=== PATIENT | male | born 1995 | race Caucasian/White ===

== ENCOUNTER 2018-07-06 15:12 | Inpatient (IN) ==
--- NOTE | 2018-07-06 15:40 | Emergency Department Note ---
History of Present Illness General Chief complaint: Infection Stated complaint: INFECTION ON ARM Time Seen by Provider: 07/06/18 15:23 History of Present Illness Maximum Pain Intensity: 5 This is a 23-year-old male that presents to the emergency department via private vehicle with complaints of "infection on arm". The patient notes that this past he noticed some redness on the right elbow. He thought there was a small blackhead there and he popped this and a small amount of blood and pus came out. He then notes that Friday the right elbow began to swell and now he notes redness that is spreading. He states that he was put on doxycycline by the [facility] employee health services but notes that he was there for recheck today and despite taking all the required and recommended medications he has now a worsening amount of redness on the right elbow. He is right-hand dominant. No direct trauma or injury. He denies any working at that involves him leaning on the elbows. He rates the pain is a 5/10. He does note of the weekend that he felt chills, fever, headache and body aches. He has never had this happen before. Home Medications Home Medications Medication Instructions Recorded Confirmed Type doxycycline hyclate 0 mg PO BID 07/06/18 07/06/18 History Allergies Allergy/AdvReac Type Severity Reaction Status Date / Time No Known Allergies Allergy Verified 07/06/18 18:58 Past Med/Surg History Medical History No pertinent past medical history Surgical History Hx of inguinal hernia repair Social History Feels Safe at Home: Yes Smoking Status: Never smoker Review of Systems A total of 10 systems reviewed and were otherwise negative Physical Exam Vital Signs Vital Signs - 24 hr 07/06/18 15:19 07/06/18 17:13 Temperature 36.9 C Temperature Source Oral Sepsis Recent Fever Within 48 Hours No Sepsis New/Unexplained Change in Mental Status No Sepsis Action Taken by Nursing No Action Required Pulse Rate 78 Pulse Rate [Right Finger] 86 Pulse Rhythm [Right Finger] Regular Pulse Strength [Right Finger] Normal Respiratory Rate 18 20 Respiratory Effort / Characteristics Non-Labored Non-Labored Respiratory Depth Normal Normal Respiratory Pattern Regular Blood Pressure 144/98 H Blood Pressure [Left Arm] 121/75 Blood Pressure Mean 113 Blood Pressure Mean [Left Arm] 90 Blood Pressure Position [Left Arm] Sitting Pulse Oximetry 99 98 Oxygen Delivery Method Room Air VITAL SIGNS - Vital signs and nursing notes were reviewed. Stable and afebrile. GENERAL -23-year-old male appearing his stated age who is in no acute distress. Communicates well with provider and answers questions appropriately. SKIN -there is a large amount of erythema overlying the patient's right posterior elbow. HEAD - NC/AT. EYES - PERRL with EOMI bilaterally. Sclera anicteric. Palpebral conjunctiva pink and moist with no injection noted. EARS - No deformities of external structures noted on gross examination bilaterally. NOSE - Midline and without cyanosis. No epistaxis or purulent drainage noted. MOUTH/OROPHARYNX - Without perioral cyanosis. NECK - Neck with FROM. Supple to palpation. No lymphadenopathy noted. No nuchal rigidity. LUNGS - Chest wall symmetric without accessory muscle use, intercostals retractions, or central cyanosis. Normal vesicular breath sounds CTA B/L. No wheezes, rales, or rhonchi appreciated. CARDIAC - RRR with S1/S2. No murmur, rubs, or gallops appreciated. EXTREMITIES - No clubbing or peripheral cyanosis. No pretibial edema present. Full range of motion both passive and active of the patient's right elbow and upper extremity. There is tenderness overlying the patient's right bursa it is slightly edematous and tender to palpation but not fluctuant. There is no evidence of drainable abscess. No physical exam evidence of septic joint. 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 +5/5 strength noted in UE/LE bilaterally. NEUROLOGIC - Cranial nerves II through XII grossly intact. Sensory intact to light touch throughout. PSYCH - A&Ox3 and cooperates fully with examiner. Pt is very pleasant and interacts well with examiner. Course Administered Medications Ioversol (Optiray 320 100ml) 93 ml IV ONCE PRN PRN Reason: Interaction Checking Stop: 07/10/18 17:18 Last Admin: 07/06/18 17:20 Dose: 93 ml Documented by: [id number] Discontinued Medications Sodium Chloride (Nss 1000ml) 1,000 mls @ 999 mls/hr IV .[id number] [id number] Stop: 07/06/18 16:45 Last Infusion: 07/06/18 17:06 Dose: 0 mls/hr Documented by: [id number] Admin: 07/06/18 16:01 Dose: 999 mls/hr Documented by: [id number] Ceftriaxone Sodium (Rocephin) 1,000 mg in 50 mls @ 100 mls/hr IV NOW STA Stop: 07/06/18 18:42 Last Infusion: 07/06/18 19:32 Dose: 0 mls/hr Documented by: [id number] Admin: 07/06/18 18:24 Dose: 100 mls/hr Documented by: [id number] Medical Decision Making Laboratory Data Result diagrams: 07/06/18 15:53 07/06/18 15:53 Lab Results 07/06/18 07/06/18 Range/Units 15:53 15:53 WBC 8.72 (4.8-10.8) K/uL RBC 5.08 (4.7-6.1) M/uL Hgb 16.0 (14.0-18.0) g/dL Hct 45.8 (42-52) % MCV 90.2 (80-100) fL MCH 31.5 (25-34) pg MCHC 34.9 (32-36) g/dL RDW Std Deviation 41.9 (36.4-46.3) fL RDW Coeff of Jhonny 12.7 (11.5-14.5) % Plt Count 214 (130-400) K/uL MPV 9.9 (7.4-10.4) fL Immature Gran % (Auto) 0.2 % Neut % (Auto) 70.0 % Lymph % (Auto) 19.0 % [place] % (Auto) 9.1 % Eos % (Auto) 1.6 % Baso % (Auto) 0.1 % Immature Gran # (Auto) 0.02 (0.00-0.02) K/uL Neut # (Auto) 6.10 (1.4-6.5) K/uL Lymph # (Auto) 1.66 (1.2-3.4) K/uL [place] # (Auto) 0.79 H (0.11-0.59) K/uL Eos # (Auto) 0.14 (0-0.5) K/uL Baso # (Auto) 0.01 (0-0.2) K/uL Sodium 138 (136-145) mmol/L Potassium 3.5 (3.5-5.1) mmol/L Chloride 101 (98-107) mmol/L Carbon Dioxide 32 (21-32) mmol/L Anion Gap 5.0 (3-11) BUN 13 (7-18) mg/dl Creatinine 0.96 (0.6-1.4) mg/dl Est Cr Clr Drug Dosing 115.5 ml/min Est GFR ( Amer) 126.8 Est GFR (Non-Af Amer) 109.4 BUN/Creatinine Ratio 13.5 (10-20) Glucose 77 (70-99) mg/dl Calcium 9.2 (8.5-10.1) mg/dl Total Bilirubin 0.6 (0.2-1) mg/dl AST 11 L (15-37) U/L ALT 18 (12-78) U/L Alkaline Phosphatase 67 (45-117) U/L Total Protein 8.5 H (6.4-8.2) gm/dl Albumin 3.9 (3.4-5.0) gm/dl Globulin 4.6 H (2.5-4.0) gm/dl Albumin/Globulin Ratio 0.8 L (0.9-2) Imaging Data Radiologist's Impression: XR elbow RT min 3V routine CLINICAL HISTORY: 23 years-old Male presenting with right elbow pain and swelling, possible history of bite, right elbow cellulitis, worsening with abx. TECHNIQUE: Frontal, oblique, and lateral views of the right elbow were obtained. COMPARISON: None. FINDINGS: Diffuse soft tissue swelling at the elbow. Displacement of a deep fat plane is suggested on lateral view. No radiographic evidence of an elbow joint effusion. No osteolysis or periosteal reaction. No acute fracture or malalignment. No advanced degenerative change. No radiographic soft tissue abnormality. IMPRESSION: 1. Nonspecific diffuse soft tissue swelling could suggest cellulitis. Deep interfascial swelling suggested by a displaced deep fat plane. A deep soft tissue infection cannot be excluded. 2. No radiographic evidence of osteomyelitis. No acute osseous injury. Electronically signed by: Jonnie Damico M.D. 07/06/2018 4:[address] DOSE: 328.02 mGy.cm HISTORY: R elbow infection TECHNIQUE: Multiaxial CT images of the right elbow were performed and reformatted in the sagittal and coronal plane following the use of intravenous contrast. A dose lowering technique was utilized adhering to the principles of ALARA. COMPARISON: Right elbow radiograph 07/06/2018. FINDINGS: Subcutaneous edema/fat stranding along the posterior medial aspect of the elbow and forearm with mild associated skin thickening. No loculated fluid collections to suggest an abscess. No radiopaque foreign bodies. No elbow effusion. No evidence for deep soft tissue fluid. The major vascular structures appear patent. No fracture or dislocation within the elbow or forearm. No erosions to suggest osteomyelitis. No soft tissue gas identified. IMPRESSION: Subcutaneous edema/fat stranding along the posterior medial aspect of the elbow and forearm consistent with a cellulitis. No loculated fluid collections to suggest an abscess. Electronically signed by: Junior Moraes M.D. 07/06/2018 5:43 PM MDM Narrative Patient was seen and evaluated as above in room C1. Review was performed of nursing notes and vital signs. After obtaining a thorough history and physical examination the above work up was performed. He presents to us today with erythema to the right posterior elbow region. He has been on antibiotics since this past Friday, noting this has been now over 3 days of antibiotics which were doxycycline per patient. He does have stable vital signs but the amount of erythema on the right elbow region is extending down to the level of the wrist encompassing in regard to length, nearly 50% of the right upper extremity. Decision was made to obtain IV access. His CBC reveals no leukocytosis or concerning anemia. No emergent metabolic abnormality. X-ray was obtained and there was nonspecific diffuse soft tissue swelling with deep interfascial swelling suggested by displaced deep fat pad. Being as though a deep soft tissue infection cannot be excluded via x-ray or exam a CT scan with contrast was obtained. Secondary to these findings noting no abscess, I do believe that inpatient management is warranted with IV antibiotics. I would Rocephin and va ncomycin. Case discussed with the hospitalist. Please refer to further documentation regarding his stay. In the evaluation and treatment of this patient, the following differential diagnoses were considered: Forearm Contusion, Radial Head Fracture, Radial Styloid Process Fracture, Ulnar Styloid Process Fracture, Radius Fracture, Ulnar Fracture, Tennis Elbow, Golfer's Elbow, or Elbow Fracture. Impression & Plan Cellulitis of right elbow Discharge Plan Visit Data Chief Complaint: Infection Stated Complaint: INFECTION ON ARM ED Provider: Anuradha Cobos ED Midlevel Provider: Sampson Wallis Discharge Problem: Cellulitis of right elbow Patient Disposition: Admitted As Inpatient Condition: Good Forms Stand Alone Forms: [facility], Important Visit Information Prescriptions Prescriptions: No Action doxycycline hyclate 100 mg Tablet PO BID RF: 0 Referrals Referrals: PCP,NO [Primary Care Provider] -
[2018-07-06] MEDS ORDERED: SODIUM CHLORIDE 0.9% 1000ML 1,000 ML IV SCH (15:45)
--- NOTE | 2018-07-06 16:06 | XRay Report ---
XR elbow RT min 3V routine CLINICAL HISTORY: 23 years-old Male presenting with right elbow pain and swelling, possible history o f bite, right elbow cellulitis, worsening with abx. TECHNIQUE: Frontal, oblique, and lateral views of the right elbow were obtained. COMPARISON: None. FINDINGS: Diffuse soft tissue swelling at the elbow. Displacement of a deep fat plane is suggested on lateral v iew. No radiographic evidence of an elbow joint effusion. No osteolysis or periosteal reaction. No ac torres martinez fracture or malalignment. No advanced degenerative change. No radiographic soft tissue abnormalit y. IMPRESSION: 1. Nonspecific diffuse soft tissue swelling could suggest cellulitis. Deep interfascial swelling sug gested by a displaced deep fat plane. A deep soft tissue infection cannot be excluded. 2. No radiographic evidence of osteomyelitis. No acute osseous injury. Electronically signed by: Jonnie Damico M.D. 07/06/2018 4:05 PM
[2018-07-06 16:08] LABS: Basophils # (auto) 0.01 K/uL (0-0.2); Basophils % (auto) 0.1 %; Eosinophils # (auto) 0.14 K/uL (0-0.5); Eosinophils % (auto) 1.6 %; Hematocrit (blood only) 45.8 % (42-52); Immature Granulocytes # (auto) 0.02 K/uL (0.00-0.02); Immature Granulocytes % (auto) 0.2 %; Lymphocytes # (auto) 1.66 K/uL (1.2-3.4); Mean Corpuscular Hgb Conc 34.9 g/dL (32-36); Mean Corpuscular Volume 90.2 fL (80-100); Mean Platelet Volume 9.9 fL (7.4-10.4); Monocytes # (auto) 0.79 K/uL (0.11-0.59); Monocytes % (auto) 9.1 %; Platelet Count 214 K/uL (130-400); RDW Coefficient of Variation 12.7 % (11.5-14.5); RDW Standard Deviation 41.9 fL (36.4-46.3); Red Blood Count 5.08 M/uL (4.7-6.1); White Blood Count 8.72 K/uL (4.8-10.8)
[2018-07-06 16:35] LABS: Albumin Level 3.9 gm/dl (3.4-5.0); BUN Creatinine Ratio 13.5 (10-20); Calcium 9.2 mg/dl (8.5-10.1); Creatinine Clr Calc Pharmacy 115.5 ml/min; Est GFR (African American) 126.8; Est GFR (Non-African American) 109.4; Potassium 3.5 mmol/L (3.5-5.1)
[2018-07-06 16:38] LABS: Albumin Globulin Ratio 0.8 (0.9-2); Bilirubin,Total 0.6 mg/dl (0.2-1); Globulin 4.6 gm/dl (2.5-4.0); Total Protein 8.5 gm/dl (6.4-8.2)
[2018-07-06] MEDS ORDERED: IOVERSOL 100ml IV PRN (17:19)
--- NOTE | 2018-07-06 17:44 | CT Scan Report ---
RIGHT ELBOW CT CT DOSE: 328.02 mGy.cm HISTORY: R elbow infection TECHNIQUE: Multiaxial CT images of the right elbow were performed and reformatted in the sagittal and coronal plane following the use of intravenous contrast. A dose lowering technique was utilized adh ering to the principles of ALARA. COMPARISON: Right elbow radiograph 07/06/2018. FINDINGS: Subcutaneous edema/fat stranding along the posterior medial aspect of the elbow and forearm with mild associated skin thickening. No loculated fluid collections to suggest an abscess. No radio paque foreign bodies. No elbow effusion. No evidence for deep soft tissue fluid. The major vascular s tructures appear patent. No fracture or dislocation within the elbow or forearm. No erosions to sugge st osteomyelitis. No soft tissue gas identified. IMPRESSION: Subcutaneous edema/fat stranding along the posterior medial aspect of the elbow and forearm consisten t with a cellulitis. No loculated fluid collections to suggest an abscess. Electronically signed by: Junior Moraes M.D. 07/06/2018 5:43 PM
[2018-07-06] MEDS ORDERED: VANCOMYCIN CONSULT ACTIVE PRN (18:13)
[2018-07-06] MEDS ORDERED: VANCOMYCIN HCL 1,500 MG in SODIUM CHLORIDE 0.9% 500 ML IV ONE (18:13)
[2018-07-06] MEDS ORDERED: cefTRIAXone SODIUM 1,000 MG/50 ML BAG IV STA (18:13)
--- NOTE | 2018-07-06 20:17 | History & Physical Report ---
Date of Service July 06, 2018 Assessment & Plan (1) Cellulitis of right elbow: 23 y/o M with no significant medical history. Presents with erythema and pain of the R arm extending above and below the elbow x 5 days. The pt states he has had fevers for the last 3 days. He was placed on Doxycycline by his GP 3 days prior. Despite compliance, his inflammation has spread. Labs are unremarkable. CT of the elbow is negative for joint involvement, bursitis or abscess and confirms cellulitis. Admitted with cellulitis of R arm having failed outpt Doxy. Pt is placed on Ceftriaxone and Vanc. Affected area delineated. Consider DC with Zyvox/Keflex if he responds well. Full code - ambulatory Total time for this admit including review of labs, meds, imaging, records - discussion with pt and ER attending - 35 min History of Present Illness Chief Complaint: Inflammation R arm Primary Care Provider: NO PCP 23 y/o M with no significant medical history. Presents with erythema and pain of the R arm extending above and below the elbow x 5 days. The pt states he has had fevers for the last 3 days. He was placed on Doxycycline by his GP 3 days prior. Despite compliance, his inflammation has spread. Labs are unremarkable. CT of the elbow is negative for joint involvement, bursitis or abscess and confirms cellulitis. 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 No history of hereditary illnesses. Allergies Allergy/AdvReac Type Severity Reaction Status Date / Time No Known Allergies Allergy Verified 07/06/18 18:58 Home Medications Home Medications Medication Instructions Recorded Confirmed Type doxycycline hyclate 0 mg PO BID 07/06/18 07/06/18 History Past Med/Surg History Medical History No pertinent past medical history Surgical History Hx of inguinal hernia repair Social History Feels Safe at Home: Yes Smoking Status: Never smoker Review of Systems Review of Systems: Gen: Denies fevers, night sweats, rigors, fatigue, malaise, weight loss/gain ENT: Denies congestion, throat pain, hearing loss Eyes: Denies acute visual changes CV: Denies CP, palpitations Pulmonary: Denies SOB, cough, wheezing GI: Denies N/V, diarrhea, constipation Neuro: Denies acute or unilateral weakness, acute gait impairment, headache or acute visual changes Musculoskeletal: Pain with flexion of elbow. Endocrine: Denies polydipsia, polyuria Skin: Acute rash of R arm as per HPI Physical Exam Physical Exam: General: AAO x 3, no distress ENT: No erythema or exudates, no thrush Eyes: FREEMAN, EOMI Head and neck: Normocephalic, atraumatic, No JVD, neck is supple. Chest/heart: Nontender, S1,2, RRR, no murmurs, no gallops Lungs: CTAB, no wheezing or crackles Abdomen: Nontender, nondistended, BS+ Neuro: AAO x 3, speech is clear, no unilateral weakness or loss of sensation, coordination intact Musculoskeletal: There is pain to palpation f the arm and mild pain with extension or flexion. There does not appear to be a fluid collection or bursitis. Skin: Erythema of R arm above and below elbow. Extremities: No clubbing, cyanosis, edema Results & Data Vital Signs (Past 12 Hours) Vital Signs Temp Pulse Pulse Resp BP BP Pulse Ox 07/06/18 17:13 86 20 121/75 98 07/06/18 15:19 98.4 F 78 18 144/98 H 99
[2018-07-06] MEDS ORDERED: IBUPROFEN 600 MG TAB PO PRN (20:22)
[2018-07-06] MEDS ORDERED: ZOLPIDEM TARTRATE 5 MG TAB PO PRN (20:50)
[2018-07-06] MEDS ORDERED: ACETAMINOPHEN 325 MG TAB PO PRN (20:50)
[2018-07-06] MEDS ORDERED: D5NSS + 20MEQ KCL 20 MEQ/1,000 ML BAG IV SCH (21:00)
[2018-07-07] MEDS: VANCOMYCIN HCL 1,000 MG in SODIUM CHLORIDE 0.9% 250 ML IV SCH ×2 (03:17→12:06)
[2018-07-07] MEDS ORDERED: cefTRIAXone SODIUM 1,000 MG in DEXTROSE 5% 50 ML IV SCH (18:00)
[2018-07-08] MEDS ORDERED: VANCOMYCIN TROUGH ONE (03:30)
--- NOTE | 2018-07-15 21:52 | Discharge Summary ---
Date of Service July 07, 2018 Admission HPI Per Admitting Provider 23 y/o M with no significant medical history. Presents with erythema and pain of the R arm extending above and below the elbow x 5 days. The pt states he has had fevers for the last 3 days. He was placed on Doxycycline by his GP 3 days prior. Despite compliance, his inflammation has spread. Labs are unremarkable. CT of the elbow is negative for joint involvement, bursitis or abscess and confirms cellulitis. 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 No history of hereditary illnesses. Principal Diagnosis right arm cellulitus Discharge Exam General: AAO x 3, no distress ENT: No erythema or exudates, no thrush Eyes: FREEMAN, EOMI Head and neck: Normocephalic, atraumatic, No JVD, neck is supple. Chest/heart: Nontender, S1,2, RRR, no murmurs, no gallops Lungs: CTAB, no wheezing or crackles Abdomen: Nontender, nondistended, BS+ Neuro: AAO x 3, speech is clear, no unilateral weakness or loss of sensation, coordination intact Musculoskeletal: Tno pain on palpation. There does not appear to be a fluid collection or bursitis. Skin: significantly decreased Erythema of R elbo (erythema was delineated earlier) Extremities: No clubbing, cyanosis, edema Discharge Data Allergies Allergy/AdvReac Type Severity Reaction Status Date / Time No Known Allergies Allergy Verified 07/06/18 18:58 Consultations 07/06/18 18:08 ED Decision to Admit Stat Ordered Studies 07/06/18 16:10 CT elbow RT w con Stat Hospital Course (1) Cellulitis of right elbow: 23 y/o M with no significant medical history. Presents with erythema and pain of the R arm extending above and below the elbow x 5 days. The pt states he has had fevers for the last 3 days. He was placed on Doxycycline by his GP 3 days prior. Despite compliance, his inflammation has spread. Labs are unremarkable. CT of the elbow is negative for joint involvement, bursitis or abscess and confirms cellulitis. Admitted with cellulitis of R arm having failed outpt Doxy. Pt is placed on Ceftriaxone and Vanc. Affected area delineated. Consider DC with Zyvox/Keflex if he responds well. On day 2: cellulitis decreased in size. Patient received PM dose of IV antibiotics. Due to history of purulent drainage, patient was given course of bactrim for 7 more days. Will discharge. Total Time Total Time Spent Total Time Spent (In Minutes): 45 Total Time Includes: Examination of the Patient, Discharge Planning and Medication Reconciliation Discharge Plan Discharge Items Patient Disposition: Home - Self-Care Reason For Visit: CELLULITIS R ARM Discharge Diagnosis: Cellulitis R arm Condition: Good Discharge Goals: Decrease discomfort Activity: Resume your previous activity Non-emergency contact: Primary Care Provider Call non-emergency contact if: you have any medication questions Follow-up/Referrals: PCP,NO [Physician] - Diet: Regular Addtl Provider Instructions: Will discharge you on Bactrim for 7 more days. Start antibiotic in morning. Prescriptions: Discontinued doxycycline hyclate 100 mg Tablet PO BID RF: 0 Stand-Alone Forms: [facility] Discharge Orders: Discharge Order (Routine); Ordered 07/07/18 Ordered By: Kole Uriostegui Admission Data Admit Date/Time: 07/06/18 20:05 Attending Provider: Kole Uriostegui Admit Provider: Shawn Rojas Primary Care Provider: Michel Flowers Other Providers: Anitha Gonzalez Service: Medical Other Interventions: Discharge Summary Assessment (RN) Last Done: 07/07/18 16:09 DC Date/Time DO NOT enter until pt leaves facility: 07/07/18 19:09
== END 2018-07-07 19:09 | disposition home or self-care (01) | DRG 603 ==
LOC: ED 15:12 → 2N 20:05 → SUATTDRO 20:05 → 2N 20:25
DX: L03.113 Cellulitis of right upper limb